=== PATIENT | male | born 1955 | race Caucasian/White ===

== ENCOUNTER 2017-07-14 16:41 | Emergency (ER) | payer MEDICARE, MEDICAID ==
[~2017-07-14] VITALS: Ht 180.3 cm; Wt 71.0 kg
[~2017-07-14 16:41] MED LIST: CARV-50 PO; CLOP75TA15 PO; FURO20TA4 PO; LISI-600 PO; METH500T PO; METO25TA6 PO; MIRT15TA PO; OMEP20CA10 PO; TRAZ-146 PO
[2017-07-14 16:45] VITALS: BP 102/53
== END 2017-07-14 17:15 | disposition home or self-care (01) ==
LOC: ER 16:42
DX: Z04.2 Encounter for examination and observation following work accident (principal); I11.0 Hypertensive heart disease with heart failure; I50.9 Heart failure, unspecified; J44.9 Chronic obstructive pulmonary disease, unspecified; I25.2 Old myocardial infarction; F12.90 Cannabis use, unspecified, uncomplicated; E11.9 Type 2 diabetes mellitus without complications; Z86.73 Personal history of transient ischemic attack (TIA), and cerebral infarction without residual deficits
CPT/HCPCS: 99283

== ENCOUNTER 2017-08-04 15:15 | Inpatient (IN) | payer MEDICARE, MEDICAID ==
[~2017-08-04] VITALS: Ht 180.3 cm; Wt 73.0 kg
[2017-08-04] MEDS ORDERED: normal saline 1000ml 1,000 ML IV ONE (15:22)
[2017-08-04] MEDS ORDERED: normal saline 1000ML IV soln IVB ONE (15:25)
[2017-08-04 15:33] LABS: BASOPHILS # (AUTO) 0.2 X10'3 (0-0.2); BASOPHILS % (AUTO) 1.5 % (0-1); EOSINOPHILS # (AUTO) 0.2 X10'3 (0-0.9); EOSINOPHILS % (AUTO) 1.7 % (0-6); HEMATOCRIT 38.9 % (42.0-52.0); HEMOGLOBIN 13.6 g/dl (14.0-17.9); LYMPHOCYTES # (AUTO) 3.1 X10'3 (1.1-4.8); LYMPHOCYTES % (AUTO) 28.4 % (21-51); MEAN CORPUSCULAR HEMOGLOBIN 32.9 PG (27.0-31.0); MEAN CORPUSCULAR HGB CONC 35.1 % (33.0-36.5); MEAN CORPUSCULAR VOLUME 93.9 FL (78-98); MEAN PLATELET VOLUME 6.7 FL (7.4-10.4); MONOCYTES # (AUTO) 0.6 X10'3 (0-0.9); MONOCYTES % (AUTO) 5.4 % (2-12); NEUTROPHILS # (AUTO) 6.9 X10'3 (1.8-7.7); PLATELET COUNT 295 X10'3 (140-440); RED BLOOD COUNT 4.15 X10'6 (4.70-6.10); RED CELL DISTRIBUTION WIDTH 14.1 % (11.5-14.5); WHITE BLOOD COUNT 10.9 X10'3 (4.5-11.0)
[2017-08-04 15:49] LABS: ALANINE AMINOTRANSFERASE 19 U/L (12-78); ALBUMIN 3.3 G/DL (3.4-5.0); ALBUMIN/GLOBULIN RATIO 0.7 (1.1-1.5); ALKALINE PHOSPHATASE 86 IU/L (46-116); ANION GAP 9 (8-16); ASPARTATE AMINO TRANSFERASE 14 U/L (10-37); BILIRUBIN,TOTAL 0.7 MG/DL (0.1-1.0); BLOOD UREA NITROGEN 47 MG/DL (7-18); BUN/CREATININE RATIO 17.8 (5.4-32.0); CALCIUM 9.3 MG/DL (8.5-10.1); CHLORIDE 102 MMOL/L (99-107); CREATINE KINASE 35 U/L (39-308); CREATININE 2.64 MG/DL (0.60-1.10); GLUCOSE 111 MG/DL (70-104); MAGNESIUM 1.9 MG/DL (1.5-2.4); POTASSIUM 5.1 MMOL/L (3.5-5.1); SODIUM 139 MMOL/L (135-145); TOTAL CARBON DIOXIDE 28.1 MMOL/L (24-32); TOTAL PROTEIN 8.1 G/DL (6.4-8.2); eGFR 25 ML/MIN
[2017-08-04 15:51] LABS: PARTIAL THROMBOPLASTIN TIME 25 SECONDS (22-32); PROTHROMBIN TIME 10.7 SECONDS (9.0-12.0)
[2017-08-04 17:59] LABS: ETHANOL < 0.010 GM/DL (0.0-0.010)
[2017-08-04 18:01] LABS: ACETAMINOPHEN < 2.0 UG/ML (10-30)
[2017-08-04 19:21] LABS: CLARITY,URINE CLEAR (Clear); COLOR,URINE YELLOW (Yellow); GLUCOSE, URINE NEGATIVE (Neg); KETONES,URINE NEGATIVE (Neg); LEUKOCYTE ESTERASE ,URINE NEGATIVE (Neg); NITRITES, URINE NEGATIVE (Neg); OCCULT BLOOD,URINE NEGATIVE (Neg); PH,URINE 5.5 (4.8-8.0); PROTEIN,URINE NEGATIVE (Neg); UROBILINOGEN,URINE 0.2 E.U/dL (0.2-1.0)
[2017-08-04 19:33] LABS: URINE AMPHETAMINE SCREEN NEGATIVE (Neg); URINE BARBITUATE SCREEN NEGATIVE (Neg); URINE BENZODIAZEPINES SCREEN POSITIVE (Neg); URINE CANNABINOID SCREEN NEGATIVE (Neg); URINE COCAINE SCREEN NEGATIVE (Neg); URINE METHADONE SCREEN NEGATIVE (Neg); URINE OPIATE SCREEN NEGATIVE (Neg); URINE PHENCYCLIDINE SCREEN NEGATIVE (Neg)
[2017-08-04 19:36] LABS: UA COLLECTION TYPE VOIDED
[2017-08-04] MEDS ORDERED: ondansetron/PF 4mg/2ml inj IV PRN (21:35)
[2017-08-04] MEDS ORDERED: acetaminophen 325mg tablet PO PRN (21:35)
[2017-08-04] MEDS ORDERED: mag hydrox/Alum hydrox/simeth 30ml oral suspension PO PRN (21:35)
[2017-08-04] MEDS ORDERED: magnesium hydroxide 30ml (MOM) UD suspension PO PRN (21:35)
[2017-08-04] MEDS ORDERED: glucagon, human recombinant 1mg kit SUBCUT PRN (22:00)
[2017-08-04] MEDS ORDERED: MESSAGE TO PHARMACY PO ONE (22:00)
[2017-08-04] MEDS ORDERED: dextrose ORAL solution 15 GM/59 ML bottle PO PRN ×2 (22:00)
[2017-08-04] MEDS ORDERED: dextrose 50%-water 50ml dispensing syringe IV PRN ×2 (22:00)
[2017-08-04] MEDS ORDERED: insulin Lispro (HumaLOG) vial - multi-dose SQ SCH (22:00)
[2017-08-04 22:46] LABS: HEMOGLOBIN A1C 6.5 % (4.5-6.2)
[2017-08-04 23:10] VITALS: BP 111/57
[2017-08-05 02:00] VITALS: BP 118/50
[2017-08-05 04:15] LABS: ALANINE AMINOTRANSFERASE 16 U/L (12-78); ALBUMIN/GLOBULIN RATIO 0.7 (1.1-1.5); ALKALINE PHOSPHATASE 79 IU/L (46-116); ANION GAP 8 (8-16); ASPARTATE AMINO TRANSFERASE 15 U/L (10-37); BILIRUBIN,TOTAL 0.5 MG/DL (0.1-1.0); BLOOD UREA NITROGEN 42 MG/DL (7-18); BUN/CREATININE RATIO 23.2 (5.4-32.0); CALCIUM 8.5 MG/DL (8.5-10.1); CHLORIDE 104 MMOL/L (99-107); CREATININE 1.81 MG/DL (0.60-1.10); GLUCOSE 92 MG/DL (70-104); POTASSIUM 4.4 MMOL/L (3.5-5.1); SODIUM 138 MMOL/L (135-145); TOTAL CARBON DIOXIDE 25.8 MMOL/L (24-32); TOTAL PROTEIN 7.3 G/DL (6.4-8.2); eGFR 38 ML/MIN
[2017-08-05 06:00] VITALS: BP 124/45
[2017-08-05 06:49] LABS: BASOPHILS % (AUTO) 0.4 % (0-1); EOSINOPHILS # (AUTO) 0.4 X10'3 (0-0.9); EOSINOPHILS % (AUTO) 3.6 % (0-6); HEMATOCRIT 36.8 % (42.0-52.0); HEMOGLOBIN 12.8 g/dl (14.0-17.9); LYMPHOCYTES # (AUTO) 3.5 X10'3 (1.1-4.8); LYMPHOCYTES % (AUTO) 34.3 % (21-51); MEAN CORPUSCULAR HGB CONC 34.9 % (33.0-36.5); MEAN CORPUSCULAR VOLUME 94.6 FL (78-98); MEAN PLATELET VOLUME 6.8 FL (7.4-10.4); MONOCYTES # (AUTO) 0.7 X10'3 (0-0.9); MONOCYTES % (AUTO) 6.5 % (2-12); NEUTROPHILS # (AUTO) 5.7 X10'3 (1.8-7.7); NEUTROPHILS % (AUTO) 55.2 % (42-75); PLATELET COUNT 250 X10'3 (140-440); RED BLOOD COUNT 3.89 X10'6 (4.70-6.10); RED CELL DISTRIBUTION WIDTH 13.6 % (11.5-14.5); WHITE BLOOD COUNT 10.3 X10'3 (4.5-11.0)
[2017-08-05] MEDS: carvedilol 6.25mg tablet PO SCH ×2 (08:00→19:29)
[2017-08-05] MEDS: pantoprazole 40mg Tablet.DR PO SCH (08:05)
[2017-08-05] MEDS: mirtazapine 15mg tablet PO SCH ×2 (08:05→19:30)
[2017-08-05] MEDS: clopidogrel 75mg tablet PO SCH (08:05)
[2017-08-05] MEDS: heparin, porcine 5000 units/ml vial SQ SCH ×2 (08:07→19:29)
[2017-08-05 11:00] VITALS: BP 141/65
[2017-08-05 15:00] VITALS: BP 98/68
[2017-08-05] MEDS ORDERED: LORazepam 2 mg/ml vial IV PRN (15:00)
[2017-08-05] MEDS ORDERED: thiamine 100mg/ml 2ml inj. IV ONE (15:00)
[2017-08-05] MEDS ORDERED: ipratropium/albuterol 3ml nebule NEB PRN (15:10)
[2017-08-05] MEDS ORDERED: thiamine inj. 100 MG in normal saline 100ml IV soln 100 ML IV ONE (15:15)
[2017-08-05] MEDS: normal saline 1000ml 1,000 ML IV SCH (16:04)
[2017-08-05 19:00] VITALS: BP 150/56
[2017-08-05] MEDS ORDERED: traZODone 50mg tablet PO SCH (21:00)
[2017-08-05 23:00] VITALS: BP 120/67
[2017-08-06 03:00] VITALS: BP 145/79
[2017-08-06] MEDS: normal saline 1000ml 1,000 ML IV SCH (04:02)
[2017-08-06 06:00] VITALS: BP 165/69
[2017-08-06 06:21] LABS: BASOPHILS % (AUTO) 0.4 % (0-1); EOSINOPHILS # (AUTO) 0.3 X10'3 (0-0.9); EOSINOPHILS % (AUTO) 3.9 % (0-6); HEMATOCRIT 37.3 % (42.0-52.0); HEMOGLOBIN 13.1 g/dl (14.0-17.9); LYMPHOCYTES # (AUTO) 2.3 X10'3 (1.1-4.8); LYMPHOCYTES % (AUTO) 30.1 % (21-51); MEAN CORPUSCULAR HEMOGLOBIN 33.4 PG (27.0-31.0); MEAN CORPUSCULAR HGB CONC 35.1 % (33.0-36.5); MEAN CORPUSCULAR VOLUME 95.3 FL (78-98); MEAN PLATELET VOLUME 7.2 FL (7.4-10.4); MONOCYTES # (AUTO) 0.5 X10'3 (0-0.9); NEUTROPHILS # (AUTO) 4.5 X10'3 (1.8-7.7); NEUTROPHILS % (AUTO) 59.6 % (42-75); PLATELET COUNT 245 X10'3 (140-440); RED BLOOD COUNT 3.92 X10'6 (4.70-6.10); RED CELL DISTRIBUTION WIDTH 13.3 % (11.5-14.5); WHITE BLOOD COUNT 7.6 X10'3 (4.5-11.0)
[2017-08-06 06:42] LABS: ALANINE AMINOTRANSFERASE 15 U/L (12-78); ALBUMIN 3.1 G/DL (3.4-5.0); ALBUMIN/GLOBULIN RATIO 0.7 (1.1-1.5); ALKALINE PHOSPHATASE 80 IU/L (46-116); ANION GAP 9 (8-16); ASPARTATE AMINO TRANSFERASE 16 U/L (10-37); BILIRUBIN,TOTAL 0.6 MG/DL (0.1-1.0); BLOOD UREA NITROGEN 30 MG/DL (7-18); BUN/CREATININE RATIO 19.4 (5.4-32.0); CALCIUM 8.8 MG/DL (8.5-10.1); CHLORIDE 103 MMOL/L (99-107); CREATININE 1.55 MG/DL (0.60-1.10); GLUCOSE 102 MG/DL (70-104); SODIUM 138 MMOL/L (135-145); TOTAL CARBON DIOXIDE 26.2 MMOL/L (24-32); TOTAL PROTEIN 7.5 G/DL (6.4-8.2); eGFR 46 ML/MIN
[2017-08-06] MEDS: clopidogrel 75mg tablet PO SCH (07:11)
[2017-08-06] MEDS: mirtazapine 15mg tablet PO SCH (07:12)
[2017-08-06] MEDS: pantoprazole 40mg Tablet.DR PO SCH (07:12)
[2017-08-06] MEDS: carvedilol 6.25mg tablet PO SCH (07:12)
[2017-08-06] MEDS: heparin, porcine 5000 units/ml vial SQ SCH (07:13)
[2017-08-06] MEDS ORDERED: folic acid 1mg tablet PO SCH (08:00)
[2017-08-06] MEDS ORDERED: thiamine 100mg tablet PO SCH (08:00)
[2017-08-06 11:00] VITALS: BP 123/66
[2017-08-06] MEDS ORDERED: FURO-150 PO (13:12)
[2017-08-06] MEDS ORDERED: THI100T PO (13:12)
[2017-08-06] MEDS ORDERED: CARV6.253 PO (13:12)
[2017-08-07] MEDS ORDERED: LORazepam 1 MG tablet PO PRN (15:00)
[2017-08-07] MEDS ORDERED: LORazepam 2 mg/ml vial IV PRN (15:00)
[2017-08-09] MEDS ORDERED: LORazepam 2 mg/ml vial IV PRN (15:00)
[2017-08-09] MEDS ORDERED: LORazepam 1 MG tablet PO PRN (15:00)
== END 2017-08-06 15:50 | disposition home or self-care (01) | DRG 682 ==
LOC: ER 15:16 → ED HOLD 21:33 → PCU 3S 22:30
PROVIDERS: ADMIT Internal Medicine; ATTEND Internal Medicine
DX: N17.9 Acute kidney failure, unspecified (principal); I50.23 Acute on chronic systolic (congestive) heart failure; I42.9 Cardiomyopathy, unspecified; F20.0 Paranoid schizophrenia; I13.0 Hypertensive heart and chronic kidney disease with heart failure and stage 1 through stage 4 chronic kidney disease, or unspecified chronic kidney disease; I25.10 Atherosclerotic heart disease of native coronary artery without angina pectoris; I95.9 Hypotension, unspecified; R00.1 Bradycardia, unspecified; N18.9 Chronic kidney disease, unspecified; J44.9 Chronic obstructive pulmonary disease, unspecified; F41.9 Anxiety disorder, unspecified; G89.29 Other chronic pain; M54.9 Dorsalgia, unspecified; E11.22 Type 2 diabetes mellitus with diabetic chronic kidney disease; B19.20 Unspecified viral hepatitis C without hepatic coma; E78.5 Hyperlipidemia, unspecified; F17.210 Nicotine dependence, cigarettes, uncomplicated; F12.90 Cannabis use, unspecified, uncomplicated; F15.90 Other stimulant use, unspecified, uncomplicated; I25.2 Old myocardial infarction; Z95.5 Presence of coronary angioplasty implant and graft; Z79.84 Long term (current) use of oral hypoglycemic drugs; Z86.73 Personal history of transient ischemic attack (TIA), and cerebral infarction without residual deficits; Z82.49 Family history of ischemic heart disease and other diseases of the circulatory system; Z79.899 Other long term (current) drug therapy; Z71.6 Tobacco abuse counseling
CPT/HCPCS: 36415; 71045; 80053; 80305; 80320; 80329; 81003; 82550; 82948; 83036; 83735; 83880; 84484; 85025; 85610; 85730; 87070; 93005; 93306; 94760; 96360; 96361; 99285; J1644; J3411; J7030

== ENCOUNTER 2017-08-08 15:05 | Emergency (ER) | payer MEDICARE, MEDICAID ==
[~2017-08-08] VITALS: Ht 180.3 cm; Wt 75.0 kg
[~2017-08-08 15:05] MED LIST changes: -CARV-50 PO; +CARV6.253 PO; +FURO-150 PO; -FURO20TA4 PO; -METH500T PO; -METO25TA6 PO; +THI100T PO
[2017-08-08 15:07] VITALS: BP 113/65
[2017-08-08] MEDS ORDERED: acetaminophen 325mg tablet PO ONE (15:55)
[2017-08-08] MEDS ORDERED: DICL100G15 TOP (16:34)
== END 2017-08-08 16:40 | disposition home or self-care (01) ==
LOC: ER 15:05
DX: S09.90XA Unspecified injury of head, initial encounter (principal); M25.461 Effusion, right knee; I25.10 Atherosclerotic heart disease of native coronary artery without angina pectoris; I11.0 Hypertensive heart disease with heart failure; I50.9 Heart failure, unspecified; I25.2 Old myocardial infarction; J44.9 Chronic obstructive pulmonary disease, unspecified; Z86.19 Personal history of other infectious and parasitic diseases; E11.9 Type 2 diabetes mellitus without complications; G89.29 Other chronic pain; F17.200 Nicotine dependence, unspecified, uncomplicated; F12.90 Cannabis use, unspecified, uncomplicated; F15.90 Other stimulant use, unspecified, uncomplicated; Z86.73 Personal history of transient ischemic attack (TIA), and cerebral infarction without residual deficits; Z79.899 Other long term (current) drug therapy; W01.0XXA Fall on same level from slipping, tripping and stumbling without subsequent striking against object, initial encounter; Y93.89 Activity, other specified; Y92.89 Other specified places as the place of occurrence of the external cause; Y99.8 Other external cause status
CPT/HCPCS: 29505; 73564; 99284

== ENCOUNTER 2017-08-21 09:07 | Inpatient (IN) | payer MEDICARE, MEDICAID ==
[2017-08-20 13:26] LABS: BASOPHILS # (AUTO) 0.1 X10'3 (0-0.2); BASOPHILS % (AUTO) 0.9 % (0-1); EOSINOPHILS # (AUTO) 0.4 X10'3 (0-0.9); EOSINOPHILS % (AUTO) 3.9 % (0-6); HEMOGLOBIN 13.3 g/dl (14.0-17.9); LYMPHOCYTES # (AUTO) 2.7 X10'3 (1.1-4.8); LYMPHOCYTES % (AUTO) 27.8 % (21-51); MEAN CORPUSCULAR HEMOGLOBIN 32.8 PG (27.0-31.0); MEAN CORPUSCULAR VOLUME 93.8 FL (78-98); MEAN PLATELET VOLUME 6.5 FL (7.4-10.4); MONOCYTES # (AUTO) 0.5 X10'3 (0-0.9); MONOCYTES % (AUTO) 5.8 % (2-12); NEUTROPHILS # (AUTO) 5.9 X10'3 (1.8-7.7); NEUTROPHILS % (AUTO) 61.6 % (42-75); PLATELET COUNT 345 X10'3 (140-440); RED BLOOD COUNT 4.04 X10'6 (4.70-6.10); RED CELL DISTRIBUTION WIDTH 13.2 % (11.5-14.5); WHITE BLOOD COUNT 9.5 X10'3 (4.5-11.0)
[2017-08-20 13:36] LABS: ALBUMIN 3.5 G/DL (3.4-5.0); ANION GAP 7 (8-16); BLOOD UREA NITROGEN 30 MG/DL (7-18); BUN/CREATININE RATIO 15.2 (5.4-32.0); CHLORIDE 98 MMOL/L (99-107); CREATININE 1.97 MG/DL (0.60-1.10); GLUCOSE 115 MG/DL (70-104); POTASSIUM 5.6 MMOL/L (3.5-5.1); SODIUM 133 MMOL/L (135-145); eGFR 35 ML/MIN
[2017-08-20 14:14] LABS: INR 1.1 INR; PARTIAL THROMBOPLASTIN TIME 27 SECONDS (22-32); PROTHROMBIN TIME 11.1 SECONDS (9.0-12.0)
[2017-08-21] VITALS (12 sets, daily range): BP systolic 131–152; BP diastolic 45–89
[~2017-08-21] VITALS: Ht 157.5 cm; Wt 74.3 kg
[~2017-08-21 09:07] MED LIST changes: +DICL100G15 TOP
[2017-08-21] MEDS ORDERED: diphenhydrAMINE 25mg capsule PO PRN (09:30)
[2017-08-21] MEDS ORDERED: normal saline 1000ml 1,000 ML IV SCH (09:30)
[2017-08-21] MEDS ORDERED: LORazepam 0.5 MG tablet PO PRN (09:30)
[2017-08-21] MEDS ORDERED: acetylcysteine 200 MG/ml 4ml vial PO PRN (09:35)
[2017-08-21] MEDS ORDERED: FURO40TA4 PO (10:26)
[2017-08-21] MEDS ORDERED: LISI40TA4 PO (10:26)
[2017-08-21] MEDS ORDERED: LORA10TA7 PO (10:30)
[2017-08-21] MEDS ORDERED: HALO100A2 IM (10:30)
[2017-08-21] MEDS ORDERED: SPIR50TA PO (10:30)
[2017-08-21] MEDS ORDERED: SPIR50TA5 PO (10:30)
[2017-08-21] MEDS ORDERED: METO100T7 PO (10:30)
[2017-08-21] MEDS ORDERED: sodium polystyrene sulfonate 15gm/60ml oral suspension PO ONE (10:35)
[2017-08-21] MEDS: sodium bicarbonate (8.4%) inj. 150 MEQ in sodium chloride 0.45% 1,000 ML IV SCH ×2 (11:27→21:12)
[2017-08-21] MEDS ORDERED: LIDOcaine 1% w/EPI 1:100,000 30ml vial (MDV) ONE (12:55)
[2017-08-21] MEDS ORDERED: nitroGLYCERIN-Tridil 50MG/D5W 250 ML IV ONE (12:55)
[2017-08-21] MEDS ORDERED: iohexol 350 MG/ML 50ML vial IV ONE (12:55)
[2017-08-21] MEDS ORDERED: heparin 1,000unit/ml 10ml vial 10 ML ONE (12:55)
[2017-08-21] MEDS ORDERED: iohexol 350MG/ML 100ml bottle IV ONE (12:56)
[2017-08-21] MEDS ORDERED: fentaNYL/PF 50MCG/1 ML 2ML syringe ONE (13:11)
[2017-08-21] MEDS ORDERED: midazolam 2 mg/2 ml injection ONE (13:11)
[2017-08-21] MEDS ORDERED: atropine 0.1mg/ml 10ml syringe ONE (13:37)
[2017-08-21] MEDS: traZODone 50mg tablet PO SCH (21:11)
[2017-08-21] MEDS: atorvastatin 20mg tablet PO SCH (21:11)
[2017-08-21] MEDS: acetylcysteine 200 MG/ml 4ml vial PO SCH (21:12)
[2017-08-22 02:00] VITALS: BP 147/56
[2017-08-22 06:00] VITALS: BP 128/67
[2017-08-22 06:29] LABS: BASOPHILS % (AUTO) 0.1 % (0-1); EOSINOPHILS # (AUTO) 0.4 X10'3 (0-0.9); EOSINOPHILS % (AUTO) 4.7 % (0-6); HEMATOCRIT 34.6 % (42.0-52.0); LYMPHOCYTES # (AUTO) 2.1 X10'3 (1.1-4.8); LYMPHOCYTES % (AUTO) 24.6 % (21-51); MEAN CORPUSCULAR HEMOGLOBIN 32.7 PG (27.0-31.0); MEAN CORPUSCULAR HGB CONC 34.8 % (33.0-36.5); MEAN CORPUSCULAR VOLUME 93.9 FL (78-98); MEAN PLATELET VOLUME 6.9 FL (7.4-10.4); MONOCYTES # (AUTO) 0.6 X10'3 (0-0.9); MONOCYTES % (AUTO) 7.1 % (2-12); NEUTROPHILS # (AUTO) 5.4 X10'3 (1.8-7.7); NEUTROPHILS % (AUTO) 63.5 % (42-75); PLATELET COUNT 272 X10'3 (140-440); RED BLOOD COUNT 3.68 X10'6 (4.70-6.10); RED CELL DISTRIBUTION WIDTH 13.5 % (11.5-14.5); WHITE BLOOD COUNT 8.6 X10'3 (4.5-11.0)
[2017-08-22 06:52] LABS: ALBUMIN 2.8 G/DL (3.4-5.0); ANION GAP 7 (8-16); BLOOD UREA NITROGEN 27 MG/DL (7-18); BUN/CREATININE RATIO 15.6 (5.4-32.0); CHLORIDE 103 MMOL/L (99-107); CHOL/HDL RATIO 3.6 (0.00-4.99); CHOLESTEROL 113 MG/DL (0-200); CREATININE 1.73 MG/DL (0.60-1.10); GLUCOSE 90 MG/DL (70-104); HDL CHOLESTEROL 31 MG/DL (35-60); LDL CHOLESTEROL 73 MG/DL (50-100); SODIUM 140 MMOL/L (135-145); TOTAL CARBON DIOXIDE 30.5 MMOL/L (24-32); TRIGLYCERIDES 79 MG/DL (20-135); eGFR 40 ML/MIN
[2017-08-22] MEDS: lisinopril 20mg tablet PO SCH ×2 (08:00→09:30)
[2017-08-22] MEDS: acetylcysteine 200 MG/ml 4ml vial PO SCH ×2 (08:00→20:18)
[2017-08-22] MEDS: metoprolol succinate 25mg (24-HOUR) SR. Tablet PO SCH ×2 (08:00→09:31)
[2017-08-22] MEDS: loratadine 10mg tablet PO SCH (09:30)
[2017-08-22] MEDS: mirtazapine 15mg tablet PO SCH (09:30)
[2017-08-22] MEDS: furosemide 20MG tablet PO SCH (09:31)
[2017-08-22] MEDS: sodium bicarbonate (8.4%) inj. 150 MEQ in sodium chloride 0.45% 1,000 ML IV SCH (09:32)
[2017-08-22 11:00] VITALS: BP_SYST 126; BP_SYST 131; BP_SYST 155; BP_DIAS 47; BP_DIAS 57; BP_DIAS 62
[2017-08-22 18:00] VITALS: BP 143/72
[2017-08-22] MEDS ORDERED: lisinopril 20mg tablet PO ONE (18:00)
[2017-08-22] MEDS: atorvastatin 20mg tablet PO SCH (20:18)
[2017-08-22] MEDS: traZODone 50mg tablet PO SCH (20:18)
[2017-08-22 21:10] LABS: CLARITY,URINE Clear (Clear); COLOR,URINE Yellow (Yellow); GLUCOSE, URINE Negative (Neg); KETONES,URINE Negative (Neg); LEUKOCYTE ESTERASE ,URINE Negative (Neg); NITRITES, URINE Negative (Neg); OCCULT BLOOD,URINE Negative (Neg); PH,URINE >=9.0 (4.8-8.0); PROTEIN,URINE Negative (Neg)
[2017-08-22 21:13] LABS: UA COLLECTION TYPE VOIDED
[2017-08-22 22:00] VITALS: BP 136/68
[2017-08-23 02:00] VITALS: BP 142/43
[2017-08-23 06:00] VITALS: BP 114/46
[2017-08-23] MEDS: furosemide 20MG tablet PO SCH (07:52)
[2017-08-23] MEDS: lisinopril 20mg tablet PO SCH (07:53)
[2017-08-23] MEDS: mirtazapine 15mg tablet PO SCH (07:53)
[2017-08-23] MEDS: acetylcysteine 200 MG/ml 4ml vial PO SCH (07:53)
[2017-08-23] MEDS: loratadine 10mg tablet PO SCH (07:54)
[2017-08-23] MEDS: metoprolol succinate 25mg (24-HOUR) SR. Tablet PO SCH (08:00)
[2017-08-23] MEDS ORDERED: ATOR80TA PO (08:58)
[2017-08-23] MEDS ORDERED: METO-539 PO (08:58)
[2017-08-23] MEDS ORDERED: ISOS10TA8 PO (09:05)
[2017-08-23 11:00] VITALS: BP 115/58
[2017-09-12] MEDS ORDERED: TYPE IN GENERIC & BRAND NAME OF PATIENT MED STRENGTH & FORM IM SCH (08:00)
== END 2017-08-23 14:50 | disposition home or self-care (01) | DRG 287 ==
LOC: SSTAY O 09:07 → PCU 3S 17:40
PROVIDERS: ADMIT Internal Medicine Cardiovascular Disease; ATTEND Internal Medicine Cardiovascular Disease
PROC: 4A023N7 Measurement of Cardiac Sampling and Pressure, Left Heart, Percutaneous Approach (ICD-10-PCS; principal; 2017-08-21)
PROC: B2111ZZ Fluoroscopy of Multiple Coronary Arteries using Low Osmolar Contrast (ICD-10-PCS; 2017-08-21)
PROC: B2151ZZ Fluoroscopy of Left Heart using Low Osmolar Contrast (ICD-10-PCS; 2017-08-21)
PROC: B3101ZZ Fluoroscopy of Thoracic Aorta using Low Osmolar Contrast (ICD-10-PCS; 2017-08-21)
DX: I25.10 Atherosclerotic heart disease of native coronary artery without angina pectoris (principal); I13.0 Hypertensive heart and chronic kidney disease with heart failure and stage 1 through stage 4 chronic kidney disease, or unspecified chronic kidney disease; F20.0 Paranoid schizophrenia; I50.22 Chronic systolic (congestive) heart failure; I42.0 Dilated cardiomyopathy; E78.5 Hyperlipidemia, unspecified; G89.29 Other chronic pain; J44.9 Chronic obstructive pulmonary disease, unspecified; I36.1 Nonrheumatic tricuspid (valve) insufficiency; K74.60 Unspecified cirrhosis of liver; I71.4 Abdominal aortic aneurysm, without rupture; B19.20 Unspecified viral hepatitis C without hepatic coma; Z60.2 Problems related to living alone; F17.210 Nicotine dependence, cigarettes, uncomplicated; G40.909 Epilepsy, unspecified, not intractable, without status epilepticus; I70.8 Atherosclerosis of other arteries; N18.9 Chronic kidney disease, unspecified; M54.9 Dorsalgia, unspecified; I25.2 Old myocardial infarction; Z95.5 Presence of coronary angioplasty implant and graft; Z79.899 Other long term (current) drug therapy; Z71.6 Tobacco abuse counseling; Y92.89 Other specified places as the place of occurrence of the external cause
CPT/HCPCS: 36415; 75625; 80048; 80061; 81003; 85025; 85576; 85610; 85730; 86885; 86900; 86901; 93005; 93459; A6257; C1769; J0461; J1644; J2250; J3010; J3490; J7030; Q0163; Q9967

== ENCOUNTER 2017-08-30 07:30 | Inpatient (IN) | payer MEDICARE, MEDICAID ==
[2017-08-28 13:15] LABS: ABG HCO3 27.2 mmol/L (22.0-26.0); ABG OXYGEN SATURATION 96.7 % (95-98); ABG PCO2 (T) 40.4 mmHg (35.0-48.0); ABG PH (T) 7.446 (7.350-7.450); ABG PO2 (T) 86.1 mmHg (83-108); ALLEN'S TEST Positive; FCOHb 3.4 % (0.5-1.5); FO2Hb 93.4 % (94-100); TOTAL HEMOGLOBIN 13.6 G/dl (14.0-18.0)
[2017-08-28 14:22] LABS: BASOPHILS % (AUTO) 0.4 % (0-1); EOSINOPHILS # (AUTO) 0.4 X10'3 (0-0.9); EOSINOPHILS % (AUTO) 4.1 % (0-6); LYMPHOCYTES # (AUTO) 2.3 X10'3 (1.1-4.8); LYMPHOCYTES % (AUTO) 26.5 % (21-51); MEAN CORPUSCULAR HEMOGLOBIN 32.9 PG (27.0-31.0); MEAN CORPUSCULAR HGB CONC 34.8 % (33.0-36.5); MEAN CORPUSCULAR VOLUME 94.6 FL (78-98); MONOCYTES # (AUTO) 0.5 X10'3 (0-0.9); MONOCYTES % (AUTO) 6.4 % (2-12); NEUTROPHILS # (AUTO) 5.4 X10'3 (1.8-7.7); NEUTROPHILS % (AUTO) 62.6 % (42-75); PRE OP HEMATOCRIT 35.7 % (42.0-52.0); PRE OP HEMOGLOBIN 12.4 g/dL (14.0-17.9); PRE OP PLATELET COUNT 267 X10'3 (140-440); RED BLOOD COUNT 3.77 X10'6 (4.70-6.10); RED CELL DISTRIBUTION WIDTH 13.5 % (11.5-14.5)
[2017-08-28 14:26] LABS: CLARITY,URINE CLEAR (Clear); COLOR,URINE YELLOW (Yellow); GLUCOSE, URINE NEGATIVE (Neg); KETONES,URINE NEGATIVE (Neg); LEUKOCYTE ESTERASE ,URINE NEGATIVE (Neg); NITRITES, URINE NEGATIVE (Neg); OCCULT BLOOD,URINE MODERATE (Neg); PROTEIN,URINE NEGATIVE (Neg); UROBILINOGEN,URINE 0.2 E.U/dL (0.2-1.0)
[2017-08-28 14:27] LABS: UA COLLECTION TYPE VOIDED
[2017-08-28 14:33] LABS: PRE OP PROTIME 10.8 SECONDS (9.0-12.0)
[2017-08-28 14:36] LABS: HEMOGLOBIN A1C 6.1 % (4.5-6.2)
[2017-08-28 14:37] LABS: ALBUMIN 3.2 G/DL (3.4-5.0); ALBUMIN/GLOBULIN RATIO 0.6 (1.1-1.5); ALKALINE PHOSPHATASE 86 IU/L (46-116); BLOOD UREA NITROGEN 24 MG/DL (7-18); BUN/CREATININE RATIO 13.4 (5.4-32.0); CALCIUM 8.7 MG/DL (8.5-10.1); CHLORIDE 99 MMOL/L (99-107); CREATININE 1.79 MG/DL (0.60-1.10); PRE OP ALT 20 U/L (30-65); PRE OP ANION GAP 7 (8-16); PRE OP AST 23 U/L (10-37); PRE OP BILIRUB, TOTAL 0.7 MG/DL (0.0-1.0); PRE OP POTASSIUM 4.1 MMOL/L (3.4-5.1); PRE OP SODIUM 135 MMOL/L (135-145); TOTAL CARBON DIOXIDE 29.2 MMOL/L (24-32); TOTAL PROTEIN 8.9 G/DL (6.4-8.2); eGFR 39 ML/MIN
[2017-08-28 14:38] LABS: PRE OP GLUCOSE 200 MG/DL (70-104)
[2017-08-28 14:44] LABS: WBC,URINE 0-4 /HPF (0-4)
[2017-08-28 14:45] LABS: BACTERIA,URINE NONE SEEN /HPF (Neg); HYALINE CASTS 0-3 /LPF (NEGATIVE); SQUAMOUS EPITHELIAL CELL,UR NONE SEEN /LPF (FEW)
[2017-08-30] VITALS (15 sets, daily range): BP systolic 108–144; BP diastolic 50–74
[~2017-08-30] VITALS: Ht 177.8 cm; Wt 79.0 kg
[~2017-08-30 07:30] MED LIST changes: +ATOR80TA PO; -CARV6.253 PO; -CLOP75TA15 PO; +Cefazolin 2GM/50ML dext iso,osmotic IVPB IV ONE; -DICL100G15 TOP; +DOCUMENT DATE & TIME OF BETA-BLOCKER PO ONE; -FURO-150 PO; +FURO40TA4 PO; +HALO100V5 IM; +ISOS10TA8 PO; -LISI-600 PO; +LISI40TA4 PO; +LORA10TA7 PO; +LORazepam 2 mg/ml vial IV PRN; +METO-539 PO; -OMEP20CA10 PO; -THI100T PO; +albuterol 2.5 MG/3 ML nebule NEB ONE; +albuterol 2.5 MG/3 ML nebule NEB PRN; +dextrose 50%-water 50ml dispensing syringe IV PRN; +famotidine 20mg tablet PO ONE; +insulin Lispro (HumaLOG) vial - multi-dose SQ SCH; +insulin regular, human 100 UNIT in normal saline 100ml IV soln 99 ML IV SCH; +metoprolol tartrate 12.5mg (1/2 tablet) PO PRN; +ringers solution, lacted 1,000 ML IV SCH; +vancomycin inj 1,500 MG in normal saline 300ml IV soln IV ONE
[2017-08-30] MEDS ORDERED: mupirocin 2% nasal ointment 1gm UD NS SCH (08:00)
[2017-08-30] MEDS ORDERED: MIDAZolam 1mg/ml 10ml vial ONE (11:08)
[2017-08-30] MEDS ORDERED: LIDOcaine 1%/PF 5ML 10 MG/ML VIAL ONE (11:09)
[2017-08-30] MEDS ORDERED: SUFENTANIL CITRATE 50 MCG/ML 2ml ampule IV ONE (11:09)
[2017-08-30] MEDS ORDERED: propofol inj 20 ML IV ONE (11:09)
[2017-08-30] MEDS ORDERED: aminocaproic acid 250 MG/1 ML inj. ONE (11:20)
[2017-08-30] MEDS ORDERED: sevoflurane 250ml liquid IH ONE (11:20)
[2017-08-30 12:16] LABS: ABG HCO3 22.3 mmol/L (22.0-26.0); ABG PCO2 32.2 mmHg (35.0-45.0); ABG PH 7.458 (7.350-7.450); ABG PO2 442.5 mmHg (60.0-100.0); CL (ABG) 107 mmol/L (99-107); FCOHb 2.2 % (0.5-1.5); FMetHb 0.7 % (0.3-1.12); FO2Hb 96.1 % (94-100); GLUCOSE (ABG) 112 mg/dl (70-105); K (ABG) 4.5 mmol/L (3.3-5.1); NA (ABG) 134 mmol/L (135-145); TOTAL HEMOGLOBIN 10.9 G/dl (14.0-18.0)
[2017-08-30] MEDS ORDERED: ePHEDrine 50MG/ML INJ. ONE (12:17)
[2017-08-30] MEDS ORDERED: heparin 10,000 units/1 ML INJ IR ONE (12:38)
[2017-08-30] MEDS ORDERED: papaverine 30 mg/ml 2ml inj. IA ONE (12:38)
[2017-08-30] MEDS ORDERED: fentaNYL /PF 50mcg/ml 5ml ampule ONE (13:03)
[2017-08-30 13:05] LABS: ABG BASE EXCESS VENOUS -3.9 mmol/L; ABG PCO2 VENOUS 43.5 mmHg; ABG PO2 VENOUS 52.8 mmHg; CL (ABG) 106 mmol/L (99-107); FCOHb VENOUS 2.9 %; FHHb VENOUS 13.4 %; FMetHb VENOUS 0.1 %; FO2Hb VENOUS 83.6 %; GLUCOSE (ABG) 115 mg/dl (70-105); K (ABG) 4.5 mmol/L (3.3-5.1); NA (ABG) 134 mmol/L (135-145); TOTAL HEMOGLOBIN 9.8 G/dl (14.0-18.0)
[2017-08-30 13:36] LABS: ABG BASE EXCESS -2.7 mmol/L (-2.0-3.0); ABG HCO3 20.8 mmol/L (22.0-26.0); ABG OXYGEN SATURATION 99.1 % (95-98); ABG PCO2 30.8 mmHg (35.0-45.0); ABG PH 7.447 (7.350-7.450); ABG PO2 384.9 mmHg (60.0-100.0); CL (ABG) 105 mmol/L (99-107); FCOHb 2.6 % (0.5-1.5); FMetHb 0.3 % (0.3-1.12); FO2Hb 96.2 % (94-100); GLUCOSE (ABG) 132 mg/dl (70-105); IONIZED CA (ABG) 1.02 mmol/L (1.03-1.32); NA (ABG) 130 mmol/L (135-145); TOTAL HEMOGLOBIN 8.8 G/dl (14.0-18.0)
[2017-08-30] MEDS ORDERED: papaverine 30 mg/ml 2ml inj. ONE (14:00)
[2017-08-30] MEDS ORDERED: heparin 10,000 units/1 ML INJ ONE (14:00)
[2017-08-30 14:01] LABS: ABG BASE EXCESS -3.2 mmol/L (-2.0-3.0); ABG HCO3 20.6 mmol/L (22.0-26.0); ABG OXYGEN SATURATION 99.2 % (95-98); ABG PH 7.426 (7.350-7.450); ABG PO2 313.6 mmHg (60.0-100.0); CL (ABG) 105 mmol/L (99-107); FCOHb 2.5 % (0.5-1.5); FMetHb 0.4 % (0.3-1.12); FO2Hb 96.3 % (94-100); GLUCOSE (ABG) 133 mg/dl (70-105); IONIZED CA (ABG) 1.01 mmol/L (1.03-1.32); NA (ABG) 130 mmol/L (135-145)
[2017-08-30 14:16] LABS: ABG BASE EXCESS 3.6 mmol/L (-2.0-3.0); ABG HCO3 27.9 mmol/L (22.0-26.0); ABG OXYGEN SATURATION 99.1 % (95-98); ABG PH 7.451 (7.350-7.450); ABG PO2 373.6 mmHg (60.0-100.0); CL (ABG) 103 mmol/L (99-107); FMetHb 0.2 % (0.3-1.12); FO2Hb 95.9 % (94-100); GLUCOSE (ABG) 328 mg/dl (70-105); NA (ABG) 130 mmol/L (135-145)
[2017-08-30 14:25] LABS: ABG BASE EXCESS 2.9 mmol/L (-2.0-3.0); ABG HCO3 26.8 mmol/L (22.0-26.0); ABG OXYGEN SATURATION 99.3 % (95-98); ABG PCO2 38.3 mmHg (35.0-45.0); ABG PH 7.463 (7.350-7.450); CL (ABG) 104 mmol/L (99-107); FCOHb 2.9 % (0.5-1.5); FMetHb 0.2 % (0.3-1.12); FO2Hb 96.2 % (94-100); GLUCOSE (ABG) 276 mg/dl (70-105); IONIZED CA (ABG) 1.22 mmol/L (1.03-1.32); K (ABG) 5.8 mmol/L (3.3-5.1); NA (ABG) 132 mmol/L (135-145); TOTAL HEMOGLOBIN 8.1 G/dl (14.0-18.0)
[2017-08-30 14:40] LABS: ABG BASE EXCESS VENOUS 0.8 mmol/L; ABG PCO2 VENOUS 44.4 mmHg; ABG PO2 VENOUS 40.4 mmHg; CL (ABG) 104 mmol/L (99-107); FCOHb VENOUS 2.6 %; FHHb VENOUS 22.3 %; FMetHb VENOUS 0.3 %; FO2Hb VENOUS 74.8 %; GLUCOSE (ABG) 252 mg/dl (70-105); IONIZED CA (ABG) 1.18 mmol/L (1.03-1.32); K (ABG) 5.4 mmol/L (3.3-5.1); NA (ABG) 133 mmol/L (135-145); TOTAL HEMOGLOBIN 8.7 G/dl (14.0-18.0)
[2017-08-30] MEDS ORDERED: sodium chloride 0.45% 1,000 ML IV SCH (15:19)
[2017-08-30] MEDS ORDERED: nitroGLYCERIN-Tridil 50MG/D5W 250 ML IV PRN (15:19)
[2017-08-30] MEDS ORDERED: niCARDipine/sod cl 20mg/200ml 200 ML IV PRN (15:19)
[2017-08-30] MEDS ORDERED: DOPamine 400mg/D5W 250ml 250 ML IV PRN (15:19)
[2017-08-30] MEDS ORDERED: potassium Cl 20mEq/100mL bag 100 ML IV PRN ×3 (15:20)
[2017-08-30] MEDS ORDERED: HYDROcodone/acetaminophen 10/325mg tab PO PRN (15:20)
[2017-08-30] MEDS ORDERED: ondansetron/PF 4mg/2ml inj IV PRN (15:20)
[2017-08-30] MEDS ORDERED: metoclopramide 5 mg/ml inj IV PRN (15:20)
[2017-08-30] MEDS ORDERED: Neutra Phos packet PO PRN (15:20)
[2017-08-30] MEDS ORDERED: magnesium 1gm/100ml D5W IVPB 100 ML IV PRN (15:20)
[2017-08-30] MEDS ORDERED: dextrose 50%-water 50ml dispensing syringe IV PRN (15:20)
[2017-08-30] MEDS ORDERED: normal saline 250ml IV soln 250 ML IV PRN (15:20)
[2017-08-30] MEDS ORDERED: magnesium 4gm in 100ml NS 100 ML IV PRN (15:20)
[2017-08-30] MEDS ORDERED: insulin regular, human inj. 100 UNITS in normal saline 100ml IV soln 100 ML IV SCH ×2 (15:20)
[2017-08-30] MEDS ORDERED: morphine 4 MG/ML inj SYRINge IV PRN (15:20)
[2017-08-30] MEDS ORDERED: sodium phosphate inj. 15 MMOL in dextrose 5%-water 150 ML IV PRN (15:20)
[2017-08-30] MEDS ORDERED: sodium phosphate inj. 30 MMOL in dextrose 5%-water 250 ML IV PRN (15:20)
[2017-08-30] MEDS ORDERED: acetaminophen 325mg tablet PO PRN (15:20)
[2017-08-30] MEDS ORDERED: magnesium hydroxide 30ml (MOM) UD suspension PO PRN (15:20)
[2017-08-30 15:56] LABS: ABG BASE EXCESS -0.9 mmol/L (-2.0-3.0); ABG HCO3 24.4 mmol/L (22.0-26.0); ABG OXYGEN SATURATION 98.1 % (95-98); ABG PCO2 (T) 42.9 mmHg (35.0-48.0); ABG PH (T) 7.372 (7.350-7.450); ABG PO2 (T) 137.4 mmHg (83-108); FMetHb 0.2 % (0.3-1.12); FO2Hb 96.9 % (94-100); PATIENT TEMPERATURE 36.8; PEEP 5 cm H2O; RESPIRATORY RATE 12 b/min; TIDAL VOLUME 550 mL; TOTAL HEMOGLOBIN 11.1 G/dl (14.0-18.0)
[2017-08-30 15:57] LABS: BASOPHILS % (AUTO) 0.1 % (0-1); EOSINOPHILS # (AUTO) 0.4 X10'3 (0-0.9); EOSINOPHILS % (AUTO) 2.7 % (0-6); HEMATOCRIT 30.5 % (42.0-52.0); HEMOGLOBIN 10.4 g/dl (14.0-17.9); LYMPHOCYTES # (AUTO) 0.7 X10'3 (1.1-4.8); LYMPHOCYTES % (AUTO) 4.7 % (21-51); MEAN CORPUSCULAR HEMOGLOBIN 32.2 PG (27.0-31.0); MEAN CORPUSCULAR VOLUME 94.9 FL (78-98); MEAN PLATELET VOLUME 6.9 FL (7.4-10.4); MONOCYTES # (AUTO) 0.7 X10'3 (0-0.9); MONOCYTES % (AUTO) 4.8 % (2-12); NEUTROPHILS # (AUTO) 12.3 X10'3 (1.8-7.7); NEUTROPHILS % (AUTO) 87.7 % (42-75); PLATELET COUNT 207 X10'3 (140-440); RED BLOOD COUNT 3.22 X10'6 (4.70-6.10); RED CELL DISTRIBUTION WIDTH 13.6 % (11.5-14.5); WHITE BLOOD COUNT 14.1 X10'3 (4.5-11.0)
[2017-08-30 16:13] LABS: ALANINE AMINOTRANSFERASE 16 U/L (12-78); ALBUMIN 2.8 G/DL (3.4-5.0); ALBUMIN/GLOBULIN RATIO 0.8 (1.1-1.5); ALKALINE PHOSPHATASE 55 IU/L (46-116); ANION GAP 10 (8-16); ASPARTATE AMINO TRANSFERASE 21 U/L (10-37); BILIRUBIN,TOTAL 0.8 MG/DL (0.1-1.0); BLOOD UREA NITROGEN 16 MG/DL (7-18); BUN/CREATININE RATIO 10.7 (5.4-32.0); CALCIUM 8.3 MG/DL (8.5-10.1); CHLORIDE 106 MMOL/L (99-107); GLUCOSE 216 MG/DL (70-104); MAGNESIUM 3.3 MG/DL (1.5-2.4); SODIUM 140 MMOL/L (135-145); TOTAL CARBON DIOXIDE 24.5 MMOL/L (24-32); TOTAL PROTEIN 6.2 G/DL (6.4-8.2); eGFR 47 ML/MIN
[2017-08-30 16:18] LABS: POTASSIUM 4.8 MMOL/L (3.5-5.1)
[2017-08-30] MEDS: insulin regular, human 100 UNIT in normal saline 100ml IV soln 99 ML IV SCH ×4 (16:19→17:35)
[2017-08-30] MEDS: ceFAZolin 1GM/D5W- ADD-VANTAGE 50 ML IV SCH (16:35)
[2017-08-30 16:41] LABS: INR 1.1 INR; PARTIAL THROMBOPLASTIN TIME 28 SECONDS (22-32); PROTHROMBIN TIME 11.7 SECONDS (9.0-12.0)
[2017-08-30] MEDS: insulin Lispro (HumaLOG) vial - multi-dose SQ SCH (18:00)
[2017-08-30] MEDS: morphine 4 MG/ML inj SYRINge IV PRN ×2 (18:38→23:30)
[2017-08-30] MEDS: albumin (Human) 5% 250ml 250 ML IV PRN ×2 (19:21→20:57)
[2017-08-30] MEDS: docusate sod 100mg capsule PO SCH (20:00)
[2017-08-30] MEDS: traZODone 50mg tablet PO SCH (20:30)
[2017-08-30] MEDS: vancomycin/NS 1 GM ADD-VANTAGE 250 ML IV SCH (20:31)
[2017-08-30] MEDS: mupirocin 2% nasal ointment 1gm UD NS SCH (20:31)
[2017-08-30 21:42] LABS: BASOPHILS % (AUTO) 0 % (0-1); EOSINOPHILS # (AUTO) 0.1 X10'3 (0-0.9); EOSINOPHILS % (AUTO) 1.1 % (0-6); HEMATOCRIT 27.8 % (42.0-52.0); HEMOGLOBIN 9.6 g/dl (14.0-17.9); LYMPHOCYTES # (AUTO) 0.4 X10'3 (1.1-4.8); LYMPHOCYTES % (AUTO) 3.3 % (21-51); MEAN CORPUSCULAR HEMOGLOBIN 32.4 PG (27.0-31.0); MEAN CORPUSCULAR HGB CONC 34.5 % (33.0-36.5); MEAN CORPUSCULAR VOLUME 94.1 FL (78-98); MEAN PLATELET VOLUME 7.1 FL (7.4-10.4); MONOCYTES # (AUTO) 0.4 X10'3 (0-0.9); NEUTROPHILS # (AUTO) 10.9 X10'3 (1.8-7.7); NEUTROPHILS % (AUTO) 92.6 % (42-75); PLATELET COUNT 194 X10'3 (140-440); RED BLOOD COUNT 2.95 X10'6 (4.70-6.10); RED CELL DISTRIBUTION WIDTH 13.7 % (11.5-14.5); WHITE BLOOD COUNT 11.7 X10'3 (4.5-11.0)
[2017-08-30 21:53] LABS: ALBUMIN 3.2 G/DL (3.4-5.0); ANION GAP 8 (8-16); BLOOD UREA NITROGEN 16 MG/DL (7-18); BUN/CREATININE RATIO 12.1 (5.4-32.0); CALCIUM 8.2 MG/DL (8.5-10.1); CHLORIDE 108 MMOL/L (99-107); CREATININE 1.32 MG/DL (0.60-1.10); GLUCOSE 114 MG/DL (70-104); SODIUM 142 MMOL/L (135-145); TOTAL CARBON DIOXIDE 25.8 MMOL/L (24-32); eGFR 55 ML/MIN
[2017-08-30] MEDS: niCARDipine/sod cl 20mg/200ml 200 ML IV PRN (22:36)
[2017-08-30 23:26] LABS: MAGNESIUM 2.6 MG/DL (1.5-2.4); PHOSPHORUS 1.6 MG/DL (2.3-4.5)
[2017-08-31] VITALS (24 sets, daily range): BP systolic 115–163; BP diastolic 49–87
[2017-08-31] MEDS: ceFAZolin 1GM/D5W- ADD-VANTAGE 50 ML IV SCH ×3 (00:13→16:15)
[2017-08-31] MEDS ORDERED: sodium phosphate in D5W IVPB 250 ML IV ONE (00:16)
[2017-08-31] MEDS: niCARDipine/sod cl 20mg/200ml 200 ML IV PRN ×2 (01:58→04:24)
[2017-08-31 02:46] LABS: ABG BASE EXCESS -1.5 mmol/L (-2.0-3.0); ABG OXYGEN SATURATION 98.1 % (95-98); ABG PCO2 (T) 37.6 mmHg (35.0-48.0); ABG PH (T) 7.403 (7.350-7.450); ABG PO2 (T) 129.5 mmHg (83-108); FCOHb 0.3 % (0.5-1.5); FMetHb 0.2 % (0.3-1.12); FO2Hb 97.6 % (94-100); MINUTE VOLUME 9 L/min; PATIENT TEMPERATURE 36.7; PEEP 5 cm H2O; RESPIRATORY RATE (OBSERVED) 13 b/min; TOTAL HEMOGLOBIN 10.5 G/dl (14.0-18.0)
[2017-08-31] MEDS: morphine 4 MG/ML inj SYRINge IV PRN (03:28)
[2017-08-31 04:24] LABS: BASOPHILS # (AUTO) 0.2 X10'3 (0-0.2); BASOPHILS % (AUTO) 1.5 % (0-1); EOSINOPHILS % (AUTO) 0 % (0-6); HEMATOCRIT 27.5 % (42.0-52.0); HEMOGLOBIN 9.5 g/dl (14.0-17.9); LYMPHOCYTES # (AUTO) 0.6 X10'3 (1.1-4.8); LYMPHOCYTES % (AUTO) 4.8 % (21-51); MEAN CORPUSCULAR HEMOGLOBIN 32.8 PG (27.0-31.0); MEAN CORPUSCULAR HGB CONC 34.7 % (33.0-36.5); MEAN CORPUSCULAR VOLUME 94.5 FL (78-98); MEAN PLATELET VOLUME 7.5 FL (7.4-10.4); MONOCYTES # (AUTO) 0.6 X10'3 (0-0.9); MONOCYTES % (AUTO) 4.6 % (2-12); NEUTROPHILS # (AUTO) 11.6 X10'3 (1.8-7.7); NEUTROPHILS % (AUTO) 89.1 % (42-75); PLATELET COUNT 177 X10'3 (140-440); RED BLOOD COUNT 2.91 X10'6 (4.70-6.10); RED CELL DISTRIBUTION WIDTH 13.9 % (11.5-14.5); WHITE BLOOD COUNT 13.1 X10'3 (4.5-11.0)
[2017-08-31 04:58] LABS: PARTIAL THROMBOPLASTIN TIME 28 SECONDS (22-32); PROTHROMBIN TIME 10.7 SECONDS (9.0-12.0)
[2017-08-31 05:00] LABS: ALANINE AMINOTRANSFERASE 16 U/L (12-78); ALBUMIN 3.4 G/DL (3.4-5.0); ALBUMIN/GLOBULIN RATIO 0.9 (1.1-1.5); ALKALINE PHOSPHATASE 57 IU/L (46-116); ANION GAP 7 (8-16); ASPARTATE AMINO TRANSFERASE 28 U/L (10-37); BILIRUBIN,TOTAL 0.7 MG/DL (0.1-1.0); BLOOD UREA NITROGEN 16 MG/DL (7-18); BUN/CREATININE RATIO 12.5 (5.4-32.0); CALCIUM 8.1 MG/DL (8.5-10.1); CHLORIDE 106 MMOL/L (99-107); CREATININE 1.28 MG/DL (0.60-1.10); GLUCOSE 171 MG/DL (70-104); MAGNESIUM 2.2 MG/DL (1.5-2.4); PHOSPHORUS 3.2 MG/DL (2.3-4.5); POTASSIUM 4.2 MMOL/L (3.5-5.1); SODIUM 140 MMOL/L (135-145); TOTAL CARBON DIOXIDE 26.8 MMOL/L (24-32); TOTAL PROTEIN 7.3 G/DL (6.4-8.2); eGFR 57 ML/MIN
[2017-08-31] MEDS: loratadine 10mg tablet PO SCH (07:15)
[2017-08-31] MEDS: docusate sod 100mg capsule PO SCH ×2 (07:15→20:21)
[2017-08-31] MEDS: pantoprazole 40mg Tablet.DR PO SCH (07:15)
[2017-08-31] MEDS: mupirocin 2% nasal ointment 1gm UD NS SCH ×2 (07:20→20:21)
[2017-08-31] MEDS: vancomycin/NS 1 GM ADD-VANTAGE 250 ML IV SCH ×2 (07:24→20:21)
[2017-08-31] MEDS ORDERED: atorvastatin 10mg tablet PO SCH (08:00)
[2017-08-31] MEDS ORDERED: aspirin 325mg tablet, delayed-release (Ecotrin) PO SCH (08:00)
[2017-08-31] MEDS ORDERED: metoprolol tartrate 12.5mg (1/2 tablet) PO SCH (08:00)
[2017-08-31] MEDS: mirtazapine 15mg tablet PO SCH (08:08)
[2017-08-31] MEDS: atorvastatin 20mg tablet PO SCH (08:20)
[2017-08-31] MEDS: aspirin 81mg tablet.DR PO SCH (08:21)
[2017-08-31] MEDS: insulin Lispro (HumaLOG) vial - multi-dose SQ SCH ×3 (09:00→18:44)
[2017-08-31] MEDS: metoprolol tartrate 25mg tablet PO SCH ×2 (09:07→20:21)
[2017-08-31] MEDS ORDERED: dextrose 50%-water 50ml dispensing syringe IV PRN ×2 (12:00)
[2017-08-31] MEDS ORDERED: dextrose ORAL solution 15 GM/59 ML bottle PO PRN (12:00)
[2017-08-31] MEDS ORDERED: MESSAGE TO PHARMACY PO ONE (12:00)
[2017-08-31] MEDS ORDERED: glucagon, human recombinant 1mg kit SUBCUT PRN (12:00)
[2017-08-31] MEDS: traZODone 50mg tablet PO SCH (20:21)
[2017-08-31] MEDS: insulin glargine (Lantus) pen - multi-dose SQ SCH (20:44)
[2017-08-31] MEDS ORDERED: lisinopril 5mg tablet PO SCH (21:00)
[2017-09-01] VITALS (16 sets, daily range): BP systolic 107–158; BP diastolic 59–89
[2017-09-01] MEDS: ceFAZolin 1GM/D5W- ADD-VANTAGE 50 ML IV SCH
[2017-09-01 02:33] LABS: BASOPHILS % (AUTO) 0.1 % (0-1); EOSINOPHILS # (AUTO) 0.3 X10'3 (0-0.9); EOSINOPHILS % (AUTO) 1.3 % (0-6); HEMATOCRIT 25.6 % (42.0-52.0); HEMOGLOBIN 8.9 g/dl (14.0-17.9); LYMPHOCYTES # (AUTO) 1.1 X10'3 (1.1-4.8); LYMPHOCYTES % (AUTO) 5.7 % (21-51); MEAN CORPUSCULAR HEMOGLOBIN 32.9 PG (27.0-31.0); MEAN CORPUSCULAR HGB CONC 34.8 % (33.0-36.5); MEAN CORPUSCULAR VOLUME 94.6 FL (78-98); MEAN PLATELET VOLUME 7.4 FL (7.4-10.4); MONOCYTES # (AUTO) 1.1 X10'3 (0-0.9); MONOCYTES % (AUTO) 5.8 % (2-12); NEUTROPHILS # (AUTO) 17.1 X10'3 (1.8-7.7); NEUTROPHILS % (AUTO) 87.1 % (42-75); PLATELET COUNT 185 X10'3 (140-440); RED CELL DISTRIBUTION WIDTH 13.8 % (11.5-14.5); WHITE BLOOD COUNT 19.6 X10'3 (4.5-11.0)
[2017-09-01 02:48] LABS: ANION GAP 6 (8-16); BLOOD UREA NITROGEN 21 MG/DL (7-18); BUN/CREATININE RATIO 14.7 (5.4-32.0); CALCIUM 8.4 MG/DL (8.5-10.1); CHLORIDE 101 MMOL/L (99-107); CREATININE 1.43 MG/DL (0.60-1.10); GLUCOSE 198 MG/DL (70-104); PHOSPHORUS 3.3 MG/DL (2.3-4.5); POTASSIUM 4.6 MMOL/L (3.5-5.1); SODIUM 134 MMOL/L (135-145); TOTAL CARBON DIOXIDE 26.7 MMOL/L (24-32); eGFR 50 ML/MIN
[2017-09-01] MEDS: aspirin 81mg tablet.DR PO SCH (08:04)
[2017-09-01] MEDS: metoprolol tartrate 25mg tablet PO SCH ×2 (08:04→21:06)
[2017-09-01] MEDS: docusate sod 100mg capsule PO SCH ×2 (08:04→21:03)
[2017-09-01] MEDS: loratadine 10mg tablet PO SCH (08:05)
[2017-09-01] MEDS: atorvastatin 20mg tablet PO SCH (08:05)
[2017-09-01] MEDS: mupirocin 2% nasal ointment 1gm UD NS SCH (08:05)
[2017-09-01] MEDS: mirtazapine 15mg tablet PO SCH (08:05)
[2017-09-01] MEDS: pantoprazole 40mg Tablet.DR PO SCH (08:05)
[2017-09-01] MEDS: insulin Lispro (HumaLOG) vial - multi-dose SQ SCH (08:44)
[2017-09-01] MEDS ORDERED: potassium Cl 20 mEq SR tablet PO PRN ×2 (08:55)
[2017-09-01] MEDS ORDERED: magnesium Cl slow-release 64mg tablet PO PRN (08:55)
[2017-09-01] MEDS ORDERED: magnesium 1gm/100ml D5W IVPB 100 ML IV PRN (08:55)
[2017-09-01] MEDS ORDERED: magnesium 4gm in 100ml NS 100 ML IV PRN (08:55)
[2017-09-01] MEDS ORDERED: potassium Cl 40MEQ/NS 500ml 500 ML IV PRN ×2 (08:55)
[2017-09-01] MEDS ORDERED: lisinopril 5mg tablet PO ONE (09:00)
[2017-09-01] MEDS: Protein Smoothie (high protein) 240ml (8oz) cup PO SCH ×2 (13:00→18:00)
[2017-09-01] MEDS: potassium Cl 20 mEq SR tablet PO SCH (20:00)
[2017-09-01] MEDS: lactobacillus rhamnosus 10,000 MMU CELLS/CAPSULE PO SCH (21:02)
[2017-09-01] MEDS: magnesium Cl slow-release 64mg tablet PO SCH (21:04)
[2017-09-01] MEDS: lisinopril 5mg tablet PO SCH (21:04)
[2017-09-01] MEDS: traZODone 50mg tablet PO SCH (21:06)
[2017-09-01] MEDS: insulin glargine (Lantus) pen - multi-dose SQ SCH (21:14)
[2017-09-02 03:00] VITALS: BP 137/63
[2017-09-02 05:11] LABS: ACTIVATED CLOTTING TIME 129 SEC (101-148)
[2017-09-02 05:11] LABS: ACT @ 1.70 U 310 SEC (193-297); ACT @ 2.84 U 439 SEC (260-420); BASELINE ACT 144 SEC (101-148); PATIENT WEIGHT 76.3k KG
[2017-09-02 06:02] LABS: BASOPHILS % (AUTO) 0.2 % (0-1); EOSINOPHILS # (AUTO) 0.1 X10'3 (0-0.9); EOSINOPHILS % (AUTO) 0.8 % (0-6); HEMATOCRIT 25.9 % (42.0-52.0); HEMOGLOBIN 8.9 g/dl (14.0-17.9); LYMPHOCYTES # (AUTO) 2.2 X10'3 (1.1-4.8); LYMPHOCYTES % (AUTO) 19.1 % (21-51); MEAN CORPUSCULAR HEMOGLOBIN 32.4 PG (27.0-31.0); MEAN CORPUSCULAR HGB CONC 34.4 % (33.0-36.5); MEAN CORPUSCULAR VOLUME 94.1 FL (78-98); MEAN PLATELET VOLUME 7.4 FL (7.4-10.4); MONOCYTES # (AUTO) 0.8 X10'3 (0-0.9); NEUTROPHILS # (AUTO) 8.3 X10'3 (1.8-7.7); NEUTROPHILS % (AUTO) 72.9 % (42-75); PLATELET COUNT 188 X10'3 (140-440); RED BLOOD COUNT 2.75 X10'6 (4.70-6.10); RED CELL DISTRIBUTION WIDTH 14.1 % (11.5-14.5); WHITE BLOOD COUNT 11.4 X10'3 (4.5-11.0)
[2017-09-02 06:16] LABS: ALBUMIN 2.8 G/DL (3.4-5.0); ANION GAP 3 (8-16); BLOOD UREA NITROGEN 22 MG/DL (7-18); BUN/CREATININE RATIO 16.9 (5.4-32.0); CALCIUM 8.2 MG/DL (8.5-10.1); CHLORIDE 102 MMOL/L (99-107); GLUCOSE 104 MG/DL (70-104); MAGNESIUM 1.6 MG/DL (1.5-2.4); SODIUM 133 MMOL/L (135-145); TOTAL CARBON DIOXIDE 27.9 MMOL/L (24-32); eGFR 56 ML/MIN
[2017-09-02 07:00] VITALS: BP 111/72
[2017-09-02] MEDS: atorvastatin 20mg tablet PO SCH (07:33)
[2017-09-02] MEDS: loratadine 10mg tablet PO SCH (07:33)
[2017-09-02] MEDS: lactobacillus rhamnosus 10,000 MMU CELLS/CAPSULE PO SCH ×2 (07:33→20:31)
[2017-09-02] MEDS: aspirin 81mg tablet.DR PO SCH (07:33)
[2017-09-02] MEDS: magnesium Cl slow-release 64mg tablet PO SCH ×2 (07:33→20:31)
[2017-09-02] MEDS: docusate sod 100mg capsule PO SCH ×2 (07:33→20:30)
[2017-09-02] MEDS: metoprolol tartrate 25mg tablet PO SCH ×2 (07:33→20:32)
[2017-09-02] MEDS: potassium Cl 20 mEq SR tablet PO SCH ×2 (07:33→20:00)
[2017-09-02] MEDS: mirtazapine 15mg tablet PO SCH (07:33)
[2017-09-02] MEDS: pantoprazole 40mg Tablet.DR PO SCH (07:33)
[2017-09-02] MEDS: HYDROcodone/acetaminophen 10/325mg tab PO PRN (07:34)
[2017-09-02] MEDS: K and/or MAG REPLACEMENT MC SCH (08:00)
[2017-09-02] MEDS: Protein Smoothie (high protein) 240ml (8oz) cup PO SCH ×3 (08:12→19:00)
[2017-09-02] MEDS: insulin Lispro (HumaLOG) vial - multi-dose SQ SCH ×2 (08:33→13:14)
[2017-09-02 10:53] LABS: K (ABG) 7.4 mmol/L (3.3-5.1)
[2017-09-02 10:54] LABS: K (ABG) 6.2 mmol/L (3.3-5.1)
[2017-09-02 11:00] VITALS: BP 121/71
[2017-09-02 15:00] VITALS: BP 141/70
[2017-09-02 19:00] VITALS: BP 140/72
[2017-09-02] MEDS: lisinopril 5mg tablet PO SCH (20:31)
[2017-09-02] MEDS: traZODone 50mg tablet PO SCH (20:32)
[2017-09-02] MEDS: insulin glargine (Lantus) pen - multi-dose SQ SCH (21:56)
[2017-09-02 23:00] VITALS: BP 118/73
[2017-09-03 03:00] VITALS: BP 125/65
[2017-09-03 05:24] LABS: BASOPHILS % (AUTO) 0.5 % (0-1); EOSINOPHILS # (AUTO) 0.2 X10'3 (0-0.9); EOSINOPHILS % (AUTO) 2.2 % (0-6); HEMOGLOBIN 9.1 g/dl (14.0-17.9); LYMPHOCYTES # (AUTO) 2.5 X10'3 (1.1-4.8); MEAN CORPUSCULAR HEMOGLOBIN 32.6 PG (27.0-31.0); MEAN CORPUSCULAR VOLUME 93.3 FL (78-98); MEAN PLATELET VOLUME 7.4 FL (7.4-10.4); MONOCYTES # (AUTO) 0.6 X10'3 (0-0.9); MONOCYTES % (AUTO) 7.2 % (2-12); NEUTROPHILS # (AUTO) 5.5 X10'3 (1.8-7.7); NEUTROPHILS % (AUTO) 62.1 % (42-75); PLATELET COUNT 210 X10'3 (140-440); RED BLOOD COUNT 2.79 X10'6 (4.70-6.10); RED CELL DISTRIBUTION WIDTH 13.6 % (11.5-14.5); WHITE BLOOD COUNT 8.8 X10'3 (4.5-11.0)
[2017-09-03 05:55] LABS: ALBUMIN 2.9 G/DL (3.4-5.0); ANION GAP 8 (8-16); BLOOD UREA NITROGEN 20 MG/DL (7-18); BUN/CREATININE RATIO 16.7 (5.4-32.0); CALCIUM 8.4 MG/DL (8.5-10.1); CHLORIDE 101 MMOL/L (99-107); GLUCOSE 110 MG/DL (70-104); MAGNESIUM 1.7 MG/DL (1.5-2.4); SODIUM 136 MMOL/L (135-145); TOTAL CARBON DIOXIDE 27.5 MMOL/L (24-32); eGFR 61 ML/MIN
[2017-09-03 07:00] VITALS: BP 107/51
[2017-09-03] MEDS: magnesium Cl slow-release 64mg tablet PO SCH (07:29)
[2017-09-03] MEDS: pantoprazole 40mg Tablet.DR PO SCH (07:29)
[2017-09-03] MEDS: docusate sod 100mg capsule PO SCH (07:29)
[2017-09-03] MEDS: mirtazapine 15mg tablet PO SCH (07:29)
[2017-09-03] MEDS: atorvastatin 20mg tablet PO SCH (07:29)
[2017-09-03] MEDS: loratadine 10mg tablet PO SCH (07:29)
[2017-09-03] MEDS: aspirin 81mg tablet.DR PO SCH (07:29)
[2017-09-03] MEDS: lactobacillus rhamnosus 10,000 MMU CELLS/CAPSULE PO SCH (07:29)
[2017-09-03] MEDS: metoprolol tartrate 25mg tablet PO SCH (07:29)
[2017-09-03] MEDS: HYDROcodone/acetaminophen 10/325mg tab PO PRN (07:30)
[2017-09-03] MEDS: potassium Cl 20 mEq SR tablet PO SCH (08:00)
[2017-09-03] MEDS: K and/or MAG REPLACEMENT MC SCH (08:00)
[2017-09-03] MEDS: Protein Smoothie (high protein) 240ml (8oz) cup PO SCH ×2 (08:01→13:14)
[2017-09-03] MEDS: insulin Lispro (HumaLOG) vial - multi-dose SQ SCH (08:47)
[2017-09-03] MEDS ORDERED: COL100C PO (08:58)
[2017-09-03] MEDS ORDERED: LISI-604 PO (08:58)
[2017-09-03] MEDS ORDERED: ASPI-1071 PO (08:58)
[2017-09-03 11:00] VITALS: BP 115/53
== END 2017-09-03 14:00 | disposition home health service (06) | DRG 236 ==
LOC: EDSTATUS 07:30 → PAS IN 09:58 → EDSTATUS 13:15 → CICU 2S 15:25 → PCU 3S 09-01 14:09
PROVIDERS: ADMIT Thoracic Surgery (Cardiothoracic Vascular Surgery); ATTEND Thoracic Surgery (Cardiothoracic Vascular Surgery)
PROC: 021109W Bypass Coronary Artery, Two Arteries from Aorta with Autologous Venous Tissue, Open Approach (ICD-10-PCS; 2017-08-30)
PROC: 06BP4ZZ Excision of Right Saphenous Vein, Percutaneous Endoscopic Approach (ICD-10-PCS; 2017-08-30)
PROC: B24BZZ4 Ultrasonography of Heart with Aorta, Transesophageal (ICD-10-PCS; 2017-08-30)
PROC: 5A1221Z Performance of Cardiac Output, Continuous (ICD-10-PCS; 2017-08-30)
PROC: 05HM33Z Insertion of Infusion Device into Right Internal Jugular Vein, Percutaneous Approach (ICD-10-PCS; 2017-08-30)
PROC: B543ZZA Ultrasonography of Right Jugular Veins, Guidance (ICD-10-PCS; 2017-08-30)
PROC: 4A133B3 Monitoring of Arterial Pressure, Pulmonary, Percutaneous Approach (ICD-10-PCS; 2017-08-30)
PROC: 02HQ32Z Insertion of Monitoring Device into Right Pulmonary Artery, Percutaneous Approach (ICD-10-PCS; 2017-08-30)
PROC: 02100Z9 Bypass Coronary Artery, One Artery from Left Internal Mammary, Open Approach (ICD-10-PCS; principal; 2017-08-30 11:25)
DX: I25.110 Atherosclerotic heart disease of native coronary artery with unstable angina pectoris (principal); I13.0 Hypertensive heart and chronic kidney disease with heart failure and stage 1 through stage 4 chronic kidney disease, or unspecified chronic kidney disease; I50.22 Chronic systolic (congestive) heart failure; I31.9 Disease of pericardium, unspecified; I38 Endocarditis, valve unspecified; R18.8 Other ascites; N18.4 Chronic kidney disease, stage 4 (severe); N17.8 Other acute kidney failure; B19.20 Unspecified viral hepatitis C without hepatic coma; F41.9 Anxiety disorder, unspecified; I25.5 Ischemic cardiomyopathy; F25.9 Schizoaffective disorder, unspecified; R73.03 Prediabetes; I70.8 Atherosclerosis of other arteries; J44.9 Chronic obstructive pulmonary disease, unspecified; K74.60 Unspecified cirrhosis of liver; F17.200 Nicotine dependence, unspecified, uncomplicated; Z95.5 Presence of coronary angioplasty implant and graft; I25.2 Old myocardial infarction; Z79.899 Other long term (current) drug therapy; Z79.01 Long term (current) use of anticoagulants
CPT/HCPCS: 0232T; 93312; 93325; 36415; 36600; 71045; 71046; 80048; 80053; 81001; 82330; 82435; 82803; 82947; 82948; 83036; 83735; 84100; 84132; 84295; 85018; 85025; 85347; 85384; 85610; 85730; 86885; 86900; 86901; 86920; 87070; 93005; 93880; 93971; 94002; 94010; 94640; 94760; 97110; 97116; 97162; 97530; A6212; A6213; A6255; A6258; A6402; A6449; A7000; A7048; A9270; C1751; J0690; J1644; J1815; J2001; J2060; J2250; J2270; J2440; J2704; J3010; J3370; J3480; J3490; J7030; J7120; P9045

== ENCOUNTER 2019-03-01 16:20 | Emergency (ER) | payer MEDICARE, MEDICAID ==
[~2019-03-01] VITALS: Ht 180.3 cm; Wt 69.0 kg
[~2019-03-01 16:20] MED LIST changes: +ASPI-1071 PO; +COL100C PO; -Cefazolin 2GM/50ML dext iso,osmotic IVPB IV ONE; -DOCUMENT DATE & TIME OF BETA-BLOCKER PO ONE; -ISOS10TA8 PO; +LISI-604 PO; -LISI40TA4 PO; -LORazepam 2 mg/ml vial IV PRN; -TRAZ-146 PO; +TRAZ-256 PO; -albuterol 2.5 MG/3 ML nebule NEB ONE; -albuterol 2.5 MG/3 ML nebule NEB PRN; -dextrose 50%-water 50ml dispensing syringe IV PRN; -famotidine 20mg tablet PO ONE; -insulin Lispro (HumaLOG) vial - multi-dose SQ SCH; -insulin regular, human 100 UNIT in normal saline 100ml IV soln 99 ML IV SCH; -metoprolol tartrate 12.5mg (1/2 tablet) PO PRN; -ringers solution, lacted 1,000 ML IV SCH; -vancomycin inj 1,500 MG in normal saline 300ml IV soln IV ONE
[2019-03-01 17:23] LABS: CLARITY,URINE CLEAR (Clear); COLOR,URINE STRAW (Yellow); GLUCOSE, URINE NEGATIVE (Neg); KETONES,URINE NEGATIVE (Neg); LEUKOCYTE ESTERASE ,URINE NEGATIVE (Neg); NITRITES, URINE NEGATIVE (Neg); OCCULT BLOOD,URINE SMALL (Neg); PH,URINE 7.5 (4.8-8.0); PROTEIN,URINE >=300 mg/dl (Neg); UROBILINOGEN,URINE 0.2 E.U/dL (0.2-1.0)
[2019-03-01 17:25] LABS: UA COLLECTION TYPE CLN CATCH MIDSTREAM
[2019-03-01 17:28] LABS: BACTERIA,URINE FEW /HPF (Neg); MUCUS STRANDS FEW /LPF (Neg); SQUAMOUS EPITHELIAL CELL,UR FEW /LPF (FEW); WBC,URINE 0-4 /HPF (0-4)
[2019-03-01 17:34] LABS: BASOPHILS # (AUTO) 0.1 X10'3 (0-0.2); EOSINOPHILS # (AUTO) 0.1 X10'3 (0-0.9); EOSINOPHILS % (AUTO) 0.7 % (0-6); HEMATOCRIT 38.6 % (42.0-52.0); HEMOGLOBIN 13.1 g/dl (14.0-17.9); LYMPHOCYTES # (AUTO) 1.6 X10'3 (1.1-4.8); LYMPHOCYTES % (AUTO) 17.3 % (21-51); MEAN CORPUSCULAR HEMOGLOBIN 27.4 PG (27.0-31.0); MEAN CORPUSCULAR HGB CONC 33.8 g/dL (33.0-36.5); MEAN PLATELET VOLUME 7.3 FL (7.4-10.4); MONOCYTES # (AUTO) 0.6 X10'3 (0-0.9); NEUTROPHILS # (AUTO) 6.7 X10'3 (1.8-7.7); PLATELET COUNT 242 X10'3 (140-440); RED BLOOD COUNT 4.76 X10'6 (4.70-6.10); RED CELL DISTRIBUTION WIDTH 16.3 % (11.5-14.5); WHITE BLOOD COUNT 9.1 X10'3 (4.5-11.0)
[2019-03-01 17:35] LABS: URINE AMPHETAMINE SCREEN NEGATIVE (Neg); URINE BARBITUATE SCREEN NEGATIVE (Neg); URINE BENZODIAZEPINES SCREEN NEGATIVE (Neg); URINE CANNABINOID SCREEN NEGATIVE (Neg); URINE COCAINE SCREEN NEGATIVE (Neg); URINE METHADONE SCREEN NEGATIVE (Neg); URINE OPIATE SCREEN NEGATIVE (Neg); URINE PHENCYCLIDINE SCREEN NEGATIVE (Neg)
[2019-03-01 17:51] LABS: ALANINE AMINOTRANSFERASE 22 U/L (12-78); ALBUMIN 3.6 G/DL (3.4-5.0); ALBUMIN/GLOBULIN RATIO 0.7 (1.1-1.5); ALKALINE PHOSPHATASE 148 IU/L (46-116); ANION GAP 8 (8-16); ASPARTATE AMINO TRANSFERASE 24 U/L (10-37); BILIRUBIN,TOTAL 0.9 MG/DL (0.1-1.0); BLOOD UREA NITROGEN 12 MG/DL (7-18); BUN/CREATININE RATIO 10.9 (5.4-32.0); CALCIUM 9.3 MG/DL (8.5-10.1); CHLORIDE 103 MMOL/L (99-107); GLUCOSE 163 MG/DL (70-104); POTASSIUM 3.7 MMOL/L (3.5-5.1); SODIUM 140 MMOL/L (135-145); TOTAL CARBON DIOXIDE 29.4 MMOL/L (24-32); TOTAL PROTEIN 8.5 G/DL (6.4-8.2); eGFR 67 ML/MIN
[2019-03-01] MEDS ORDERED: SERT-153 PO (18:01)
[2019-03-01] MEDS ORDERED: LISI-604 PO (18:01)
[2019-03-01] MEDS ORDERED: PRAZ1CAP5 PO (18:01)
[2019-03-01] MEDS ORDERED: NAPR-56 PO (18:01)
[2019-03-01] MEDS ORDERED: METF-436 PO (18:01)
[2019-03-01] MEDS ORDERED: FURO-149 PO (18:01)
[2019-03-01] MEDS ORDERED: OMEP20TA23 PO (18:01)
[2019-03-01] MEDS ORDERED: HYDR-3686 PO (18:01)
[2019-03-01] MEDS ORDERED: BACL10TA PO (18:01)
[2019-03-01 18:24] LABS: TROPONIN I 0.06 NG/ML (0.0-0.05)
--- NOTE | 2019-03-01 18:26 | NUR ---
Pt was brought in by EMS and taken straight back to ER overflow on [facility] at 1617 to bed 21. Pt resides at an assisted living on [address]. They called EMS for AH and SI. Pt has been off his meds for 3 days. He has an [employer] worker who fills his pill box for him. He completed the supply, his [employer] worker did not show up for work to refill his pill box. Pt states that she has cancer and falls a lot. Pt states that the voices, "Scare me to " and that "they're really sick." Pt states that he thought he was David but then stated that the voices were telling him things like to "butt fuck David" or "butt fuck the Lord." Pt states "I said some really terrible things" and "I think I caused all this." Pt has a Hx of schizophrenia. He has dentures both uppers and lowers. Pt is tachycardic at 122 BPM with an irregular heart rate. An EKG was done showing A-fib, HARMONY Colmenares notified. A troponin was ordered. UA collected and sent. Pt has a Hx of [place] in 2012 with RCA stent, HTN, CKD, DM II, CHF, COPD, cirrhosis, and hyperlipidemia.
[2019-03-01] MEDS ORDERED: METF-950 PO (20:58)
[2019-03-01] MEDS ORDERED: hydrOXYzine 25 MG tablet PO PRN (21:25)
--- NOTE | 2019-03-02 00:04 | NUR ---
HARMONY made aware of troponin results from 1727. N.O. received to repeat troponin and EKG now.
[2019-03-02] MEDS ORDERED: aspirin 325mg tablet PO ONE (00:30)
--- NOTE | 2019-03-02 00:30 | NUR ---
made aware of EKG results with notable changes. Per Dr. Sarah, pt. to be transferred to main ED at this time.
--- NOTE | 2019-03-02 03:05 | NUR ---
CONSULTED WITH MD AHMADI WHO REPORTED THAT PT WAS NOT BEING ADMITTED TO [facility] AND IS TO BE RETURNED TO [facility] OVERFLOW. ORDERED THAT AFTER 0300 TROPONIN IS TAKEN, PIV IS TO BE REMOVED AND PT REMOVED FROM [facility] PROTOCOL.
--- NOTE | 2019-03-02 04:52 | NUR ---
Spoke with Dr. Sarah re lab results. Per MD, hospital admission is not indicated for this pt. at this time. Both ED doctor and hospitalist reviewed pt's condition and recent interventions which revealed chronic processes. Per MD, "troponin-leakage" is probable cause of elevated troponins and low levels, such us in pt's case, can be expected.
[2019-03-02 05:37] VITALS: BP 155/104
--- NOTE | 2019-03-02 07:00 | NUR ---
pt resting. no concerns at this time
[2019-03-02] MEDS ORDERED: naproxen 500mg tablet PO SCH (07:30)
[2019-03-02] MEDS ORDERED: sertraline 50mg tablet PO SCH (08:00)
[2019-03-02] MEDS ORDERED: loratadine 10mg tablet PO SCH (08:00)
[2019-03-02] MEDS ORDERED: furosemide 40mg tablet PO SCH (08:00)
[2019-03-02] MEDS ORDERED: baclofen 10mg tablet PO SCH (08:00)
[2019-03-02] MEDS ORDERED: mirtazapine 15mg tablet PO SCH (08:00)
[2019-03-02] MEDS ORDERED: pantoprazole 40mg Tablet.DR PO SCH (08:00)
[2019-03-02] MEDS ORDERED: haloperidol decanoate***LONG-ACTING*** 100mg/ml **IM only** inj. IM SCH (08:00)
[2019-03-02] MEDS ORDERED: metFORMIN 500mg tablet PO SCH (08:00)
--- NOTE | 2019-03-02 08:00 | NUR ---
pt resting. no concerns at this time
--- NOTE | 2019-03-02 09:00 | NUR ---
pt resting. no concerns at this time
--- NOTE | 2019-03-02 10:14 | NUR ---
ihss not open today. called regarding care givers not showing up for 3 days
--- NOTE | 2019-03-02 11:00 | NUR ---
pt resting. no concerns at this time
--- NOTE | 2019-03-02 12:00 | NUR ---
PT IS RESTING
[2019-03-02] MEDS ORDERED: lisinopril 5mg tablet PO SCH (21:00)
[2019-03-02] MEDS ORDERED: atorvastatin 20mg tablet PO SCH (21:00)
[2019-03-02] MEDS ORDERED: prazosin 1mg capsule PO SCH (21:00)
[2019-03-11] MEDS ORDERED: SERT100T10 PO (12:36)
[2019-03-11] MEDS ORDERED: HALO5TAB PO (12:36)
[2019-03-11] MEDS ORDERED: POTA20TA10 PO (12:36)
[2019-03-11] MEDS ORDERED: ASPI-1071 PO (12:36)
[2019-03-11] MEDS ORDERED: LIDO700A47 TP (12:36)
[2019-03-11] MEDS ORDERED: HYDR50TA65 PO (12:36)
[2019-03-11] MEDS ORDERED: METO-395 PO ×2 (12:36→12:50)
== END 2019-03-02 14:33 | disposition home or self-care (01) ==
LOC: ER 16:21
DX: R45.851 Suicidal ideations (principal); F20.9 Schizophrenia, unspecified; F32.9 Major depressive disorder, single episode, unspecified; I48.91 Unspecified atrial fibrillation; I25.10 Atherosclerotic heart disease of native coronary artery without angina pectoris; I50.9 Heart failure, unspecified; I11.0 Hypertensive heart disease with heart failure; I25.2 Old myocardial infarction; J44.9 Chronic obstructive pulmonary disease, unspecified; E11.9 Type 2 diabetes mellitus without complications; G89.29 Other chronic pain; F41.9 Anxiety disorder, unspecified; F12.90 Cannabis use, unspecified, uncomplicated; F15.90 Other stimulant use, unspecified, uncomplicated; Z86.73 Personal history of transient ischemic attack (TIA), and cerebral infarction without residual deficits; Z98.890 Other specified postprocedural states; Z79.899 Other long term (current) drug therapy
CPT/HCPCS: 36415; 80053; 80305; 81001; 84443; 84484; 85025; 93005; 99284; Z7610; 99285

== ENCOUNTER 2019-03-02 22:09 | Emergency (ER) | payer MEDICARE, MEDICAID ==
[~2019-03-02] VITALS: Ht 180.3 cm; Wt 69.1 kg
[~2019-03-02 22:09] MED LIST changes: -ASPI-1071 PO; +BACL10TA PO; -COL100C PO; +HYDR-3686 PO; +METF-950 PO; -METO-539 PO; +NAPR-56 PO; +OMEP20TA23 PO; +PRAZ1CAP5 PO; +SERT-153 PO; -TRAZ-256 PO
[2019-03-02] MEDS ORDERED: ziprasidone 20mg capsule PO SCH (23:15)
[2019-03-02 23:27] VITALS: BP 153/85
== END 2019-03-02 23:36 | disposition home or self-care (01) ==
LOC: ER 22:10
DX: G47.00 Insomnia, unspecified (principal); F29 Unspecified psychosis not due to a substance or known physiological condition; I48.91 Unspecified atrial fibrillation; I25.10 Atherosclerotic heart disease of native coronary artery without angina pectoris; I50.9 Heart failure, unspecified; I11.0 Hypertensive heart disease with heart failure; I25.2 Old myocardial infarction; J44.9 Chronic obstructive pulmonary disease, unspecified; E11.9 Type 2 diabetes mellitus without complications; G89.29 Other chronic pain; F41.9 Anxiety disorder, unspecified; F20.9 Schizophrenia, unspecified; F12.90 Cannabis use, unspecified, uncomplicated; F15.90 Other stimulant use, unspecified, uncomplicated; Z86.73 Personal history of transient ischemic attack (TIA), and cerebral infarction without residual deficits; Z86.19 Personal history of other infectious and parasitic diseases; Z98.890 Other specified postprocedural states; Z79.899 Other long term (current) drug therapy
CPT/HCPCS: 99283

== ENCOUNTER 2019-08-26 05:43 | Day surgery (SDC) | payer MEDICARE, MEDICAID ==
[2019-08-25 11:57] LABS: BASOPHILS # (AUTO) 0.1 X10'3 (0-0.2); BASOPHILS % (AUTO) 0.9 % (0-1); EOSINOPHILS # (AUTO) 0.2 X10'3 (0-0.9); EOSINOPHILS % (AUTO) 3.2 % (0-6); HEMATOCRIT 36.4 % (42.0-52.0); HEMOGLOBIN 12.2 g/dl (14.0-17.9); LYMPHOCYTES # (AUTO) 1.9 X10'3 (1.1-4.8); LYMPHOCYTES % (AUTO) 27.4 % (21-51); MEAN CORPUSCULAR HEMOGLOBIN 27.7 PG (27.0-31.0); MEAN CORPUSCULAR HGB CONC 33.6 g/dL (33.0-36.5); MEAN CORPUSCULAR VOLUME 82.4 FL (78-98); MEAN PLATELET VOLUME 7.5 FL (7.4-10.4); MONOCYTES # (AUTO) 0.5 X10'3 (0-0.9); MONOCYTES % (AUTO) 7.1 % (2-12); NEUTROPHILS # (AUTO) 4.3 X10'3 (1.8-7.7); NEUTROPHILS % (AUTO) 61.4 % (42-75); PLATELET COUNT 250 X10'3 (140-440); RED BLOOD COUNT 4.42 X10'6 (4.70-6.10); RED CELL DISTRIBUTION WIDTH 17.9 % (11.5-14.5)
[2019-08-25 12:02] LABS: ALBUMIN 3.6 G/DL (3.4-5.0); ANION GAP 8 (8-16); BLOOD UREA NITROGEN 25 MG/DL (7-18); BUN/CREATININE RATIO 14.1 (5.4-32.0); CALCIUM 8.5 MG/DL (8.5-10.1); CHLORIDE 103 MMOL/L (99-107); CREATININE 1.77 MG/DL (0.60-1.10); GLUCOSE 152 MG/DL (70-104); POTASSIUM 4.9 MMOL/L (3.5-5.1); SODIUM 137 MMOL/L (135-145); TOTAL CARBON DIOXIDE 26.3 MMOL/L (24-32); eGFR 39 ML/MIN
[2019-08-25 12:06] LABS: PARTIAL THROMBOPLASTIN TIME 30 SECONDS (22-32)
[~2019-08-26] VITALS: Ht 177.8 cm; Wt 69.7 kg
[2019-08-26] VITALS (14 sets, daily range): BP systolic 125–164; BP diastolic 48–81
[~2019-08-26 05:43] MED LIST changes: +ASPI-1071 PO; +HALO5TAB PO; -HYDR-3686 PO; +HYDR50TA65 PO; +LIDO700A47 TP; +METO-395 PO; +POTA20TA10 PO; +SERT100T10 PO
[2019-08-26] MEDS ORDERED: acetylcysteine 200 MG/ml 4ml vial PO PRN (05:56)
[2019-08-26] MEDS ORDERED: sodium bicarbonate (8.4%) inj. 150 ML in dextrose 5%-water 1,000 ML IV ONE (06:00)
[2019-08-26] MEDS ORDERED: METF-436 PO (06:15)
[2019-08-26] MEDS ORDERED: TRAZ-256 PO (06:15)
[2019-08-26] MEDS ORDERED: PRAZ5CAP PO (06:15)
[2019-08-26] MEDS ORDERED: ASPI-1265 PO (06:15)
[2019-08-26] MEDS ORDERED: METO100T7 PO (06:15)
[2019-08-26] MEDS ORDERED: CLOP75TA15 PO (06:15)
[2019-08-26] MEDS ORDERED: VARD20TA31 PO (06:15)
[2019-08-26] MEDS ORDERED: HYDR50CA5 PO (06:15)
[2019-08-26] MEDS ORDERED: heparin 1,000unit/ml 10ml vial 10 ML ONE (07:17)
[2019-08-26] MEDS ORDERED: nitroGLYCERIN-Tridil 50MG/D5W 250 ML IV ONE (07:17)
[2019-08-26] MEDS ORDERED: iohexol 350 MG/ML 50ML vial IV ONE (07:17)
[2019-08-26] MEDS ORDERED: LIDOcaine 1% (10mg/ml)w/preservative injection 20ml MDV ONE (07:17)
[2019-08-26] MEDS ORDERED: iohexol 350MG/ML 100ml bottle IV ONE ×2 (07:17→08:26)
[2019-08-26] MEDS ORDERED: midazolam 2 mg/2 ml injection ONE (08:06)
[2019-08-26] MEDS ORDERED: fentaNYL/PF 50MCG/1 ML 2ML syringe ONE (08:06)
--- NOTE | 2019-08-26 13:14 | NUR ---
PT VOIDED 750ML CLEAR, DARK YELLOW URINE.
== END 2019-08-26 17:35 | disposition home or self-care (01) ==
LOC: SSTAY O 05:43
PROVIDERS: ATTEND Internal Medicine Cardiovascular Disease
DX: R94.39 Abnormal result of other cardiovascular function study (principal); T82.855A Stenosis of coronary artery stent, initial encounter; I25.10 Atherosclerotic heart disease of native coronary artery without angina pectoris; E78.5 Hyperlipidemia, unspecified; J44.9 Chronic obstructive pulmonary disease, unspecified; F17.210 Nicotine dependence, cigarettes, uncomplicated; I42.0 Dilated cardiomyopathy; I07.1 Rheumatic tricuspid insufficiency; I11.0 Hypertensive heart disease with heart failure; I50.22 Chronic systolic (congestive) heart failure; F20.0 Paranoid schizophrenia; B19.20 Unspecified viral hepatitis C without hepatic coma; F10.10 Alcohol abuse, uncomplicated; Z95.5 Presence of coronary angioplasty implant and graft; Z98.890 Other specified postprocedural states; Y83.8 Other surgical procedures as the cause of abnormal reaction of the patient, or of later complication, without mention of misadventure at the time of the procedure; Y92.89 Other specified places as the place of occurrence of the external cause
CPT/HCPCS: 36415; 76937; 80048; 82948; 85025; 85610; 85730; 93005; 93461; C1769; J1644; J2001; J2250; J3010; Q9967; A4620; A6258; C1751; J3490